=== PATIENT | female | born 1980 | race Caucasian/White ===

== ENCOUNTER → 2017-05-13 | Outpatient (CLI) | payer MEDICAID ==
[2017-05-14 13:35] LABS: MYCOPLASMA IGM IFA ANTIBODY <1:10 (<1:10)
== END ==
LOC: LAB 14:32
PROVIDERS: ATTEND Nurse Practitioner Family
DX: R09.81 Nasal congestion (principal)
CPT/HCPCS: 36415; 86738

== ENCOUNTER 2018-03-09 11:02 | Emergency (ER) | payer MEDICAID ==
[~2018-03-09] VITALS: Ht 162.6 cm; Wt 87.5 kg
[2018-03-09] MEDS ORDERED: BC (11:25)
[2018-03-09] MEDS ORDERED: NIFE30TA82 (11:25)
[2018-03-09] MEDS ORDERED: IBUPROFEN 800 MG (MOTRIN) TAB PO ONE ×2 (11:31→11:45)
--- NOTE | 2018-03-09 11:45 | ED EENT ---
History of Present Illness General Chief Complaint: Oral/Throat Problems Stated Complaint: BODYACHES,FEVER Nursing Triage Note: [facility], PT HAS FEVER SINCE YESTERDAY STATES"THINKS HAS STREP THROAT" History of Present Illness Date Seen by Provider: March 09, 2018 Time Seen by Provider: 11:30 Initial Comments 38-year-old female presents for throat pain. She reports it started yesterday with mild pain but as the evening progressed and this morning it became worse. She had Tylenol at 0700 this morning with minimal improvement in her symptoms. Her son was evaluated overnight for similar symptoms. She's had history of strep in the past no tonsillectomy. She is 4 months , on oral contraceptives. Timing/Duration: gradual Severity: moderate Location: throat Prearrival Treatment: over the counter meds (Tylenol) Associated Symptoms: No cough, No ear drainage; fever, malaise; No nasal congestion/drainage, No poor fluid intake; poor solids intake; No sinus infection; sore throat; No tooth pain Allergies and Home Medications Allergies Coded Allergies: No Known Drug Allergies (Unverified , 03/09/18) Home Medications Amoxicillin 500 Mg Capsule, 500 MG PO TID Prescribed by: JOSE RAUL MASON on 03/09/18 1205 Patient Home Medication List Home Medication List Reviewed: Yes Review of Systems Constitutional: no symptoms reported, see HPI Throat: see HPI, pain, swelling, painful swallowing All Other Systems Reviewed Negative Unless Noted: Yes Past Olpglgl-Xeyhjy-Uecefk Hx Past Med/Social Hx: Reviewed Nursing Past Med/Soc Hx Patient Social History Alcohol Use: Rarely Uses Recreational Drug Use: No Smoking Status: Never a Smoker Recent Foreign Travel: No Contact w/Someone Who Travel: No Recent Infectious Disease Expo: No Recent Hopitalizations: No Physical Abuse: No Sexual Abuse: No Past Medical History : No Nursing Suicide Risk Score: 0 Physical Exam Vital Signs Vital Signs - First Documented 03/09/18 11:15 Temp 101.2 Pulse 116 Resp 18 B/P (MAP) 161/92 (115) Pulse Ox 97 General Appearance: WD/WN, no apparent distress Eyes: bilateral eye normal inspection, bilateral eye PERRL, bilateral eye EOMI Ears: bilateral ear auricle normal, bilateral ear canal normal, bilateral ear TM normal Nose: normal inspection; No active bleeding, No discharge Mouth/Throat: normal mouth inspection; No dental tenderness; pharynx swelling; No tonsillar exudate; tonsillar swelling (2+ with marked erythema); No uvula swelling, No voice changes Neck: non-tender, full range of motion, supple, normal inspection; No lymphadenopathy (R), No lymphadenopathy (L) Cardiovascular: normal peripheral pulses, regular rate, rhythm, no murmur Respiratory: chest non-tender, lungs clear, normal breath sounds Gastrointestinal: normal bowel sounds, non tender, soft Neurologic/Psychiatric: no motor/sensory deficits, alert, normal mood/affect, oriented x 3 Skin: normal color, warm/dry Progress/Results/Core Measures Results/Orders Lab Results Laboratory Tests Test 03/09/18 11:20 Range/Units Group A Streptococcus Screen POSITIVE H NEGATIVE My Orders Orders - JOSE RAUL MASON Rapid Strep A Screen (03/09/18 11:25) Ibuprofen Tablet (Motrin Tablet) (03/09/18 11:31) Ibuprofen Tablet (Motrin Tablet) (03/09/18 11:45) Medications Given in ED Current Medications Medications Dose Ordered Sig/Mandie Route Start Time Stop Time Status Last Admin Dose Admin Ibuprofen 800 mg STK-MED ONCE PO 03/09/18 11:31 03/09/18 11:38 DC 03/09/18 11:40 800 MG Vital Signs/I&O 03/09/18 03/09/18 11:15 12:16 Temp 101.2 101.2 Pulse 116 116 Resp 18 18 B/P (MAP) 161/92 (115) 161/92 (115) Pulse Ox 97 97 Blood Pressure Mean: 115 Departure Impression Primary Impression: Strep pharyngitis Additional Impression: Fever Qualified Codes: R50.81 - Fever presenting with conditions classified elsewhere Disposition: 01 HOME, SELF-CARE Condition: Stable Departure-Patient Inst. Decision time for Depature: 12:10 Referrals: RENUKA HERNANDEZ MD (PCP/Family) Primary Care Physician Patient Instructions: Strep Throat (DC) Add. Discharge Instructions: Take antibiotics as prescribed. Increase fluid intake, or cold fluids as tolerated. Alternate between Tylenol 650 mg and ibuprofen 600 mg every 4 hours for fever or pain. Salt water gargles every 2 hours while awake. Throw your tooth brush away in 2 days. Wash pillowcases and change daily. Avoid sharing any cups, eating utensils or other items that may touch your mouth. Follow-up with your primary care provider in 2-3 days if symptoms are not improving or worsen. Return to emergency department for temperature greater than 101 not relieved with Tylenol or ibuprofen, inability to eat or drink, or new problems. All discharge instructions reviewed with patient and/or family. Voiced understanding. Scripts Amoxicillin (Amoxicillin) 500 Mg Capsule 500 MG PO TID, #21 CAP 0 Refills Prov: JOSE RAUL MASON 03/09/18 Copy Copies To 1: RENUKA HERNANDEZ MD, AMY ARNP March 09, 2018 11:45
[2018-03-09] MEDS ORDERED: AMOX500C2 PO (12:05)
[2018-03-09 12:16] VITALS: BP 161/92
== END 2018-03-09 12:16 | disposition home or self-care (01) ==
LOC: EDUNIT# 11:02 → ER 11:03
DX: J02.0 Streptococcal pharyngitis (principal)
CPT/HCPCS: 87430; 99283

== ENCOUNTER → 2019-03-15 | Outpatient (CLI) | payer MEDICAID ==
[~2019-03-15] MED LIST: AMOX500C2 PO; BC; NIFE30TA82
--- NOTE | 2019-03-15 18:47 | Diagnostic Imaging Report ---
INDICATION: Left shoulder pain radiating down arm. FINDINGS: Three views. Thoracic spine shows good alignment. Body heights are well-maintained. Mild degenerative changes noted throughout the midthoracic spine with narrowing of the disc spaces. Anterior bony bridging noted most prominently at T8-T9. Pedicles are intact. No paraspinal masses. IMPRESSION: Rather advanced degenerative bony spondylosis with hypertrophic endplate changes anteriorly in the mid thoracic spine. Dictated by: Dictated on workstation # [id number]
== END ==
LOC: RAD 17:05
PROVIDERS: ATTEND Family Medicine
DX: M47.814 Spondylosis without myelopathy or radiculopathy, thoracic region (principal)
CPT/HCPCS: 72072